=== PATIENT | female | born 1960 | race Two or more races ===

== ENCOUNTER → 2024-03-10 | Emergency (ER) | payer OTHER ==
[~2024-03-10] VITALS: Ht 157.5 cm; Wt 113.4 kg
[~2024-03-10] MED LIST: 0.9 % SODIUM CHLORIDE 1,000 ML IV SCH; ACETAMINOPHEN 325 MG TABLET PO PRN; ASPIRIN 325 MG TABLET.EC PO STA; CARVEDILOL ER40 MG PO; COZAAR25 MG PO; ENOXAPARIN SODIUM 30 MG/0.3 ML SYRINGE SUBCUTANEO SCH; FAMOTIDINE/PF 20 MG in 0.9 % SODIUM CHLORIDE 100 ML IV SCH; NITROGLYCERIN 250 ML IV SCH; NITROGLYCERIN IN 5 % DEXTROSE 250 ML IV SCH; SPIRONOLACTONE25 MG PO; TICAGRELOR 90 MG TABLET PO STA
[2024-03-10 23:27] LABS: HEMATOCRIT 35.4 % (36.0-45.00); HEMOGLOBIN 11.6 g/dL (12.0-15.00); MEAN CELL VOLUME 91.5 fL (80.00-100.00); MEAN CORPUSCULAR HGB CONC 32.9 g/dl (32.0-36.0); PLATELET COUNT 309 K/uL (150-450); RED BLOOD COUNT 3.87 M/uL (4.00-6.00); RED CELL DISTRIBUTION WIDTH 13.9 % (11.5-14.5)
[2024-03-11 00:08] LABS: ALBUMIN 3.6 gm/dL (3.4-5.0); BILIRUBIN TOTAL 0.23 mg/dL (0.3-1.2); CALCIUM 9.4 mg/dL (8.5-10.1); GFR 52.13; GLOBULINA 3.9 G/DL (2.4-3.5); POTASSIUM 3.9 mEq/L (3.5-5.1); TOTAL PROTEIN 7.5 gm/dL (6.4-8.2)
[2024-03-11 00:10] LABS: CREATININE SERUM 1.07 mg/dL (0.55-1.02)
[2024-03-11 04:32] LABS: INR 0.96; PARTIAL THROMBOPLASTIN TIME 22.8 SECONDS (22.0-34.0); PROTHROMBIN TIME 10.5 SECONDS (9.0-11.5)
== END | disposition left against medical advice (07) ==
LOC: ER 20:30
PROVIDERS: General Practice
DX: I50.9 Heart failure, unspecified (principal); R55 Syncope and collapse; Z85.3 Personal history of malignant neoplasm of breast; Z88.8 Allergy status to other drugs, medicaments and biological substances; I21.4 Non-ST elevation (NSTEMI) myocardial infarction
CPT/HCPCS: 36415; 70450; 71045; 93005; 96365; 96366; 99283; J3490